=== PATIENT | male | born 1940 | race Caucasian/White ===

== ENCOUNTER 2019-06-26 09:39 | Day surgery (SDC) | payer MEDICARE, OTHER, SELFPAY ==
--- NOTE | 2019-06-26 | PATH_ITS ---
[facility] Accession Number: [id number] . 01 Material submitted: . rectum - RECTAL POLPY BIOPSY X2 . 02 Diagnosis: Rectal Polyps, Biopsies: Fragments of tubular adenoma (two polyps removed). V 06/27/2019 1253 Local . 02 Electronically signed: . Naveen Lincoln MD, PhD, Pathologist NPI- [id number] . 01 Gross description: . RECTAL POLPY BIOPSY X2: Received in formalin are multiple fragment(s) of flores, soft tissue measuring 0.1 x 0.1 x 0.1 cm to 0.3 x 0.3 x 0.3 cm submitted entirely in 1 cassette(s) [place] [place] 0201 Local . 02 Pathologist provided ICD-10: D12.8 . 02 CPT . 423737 Performed at: 01 [facility] [address] [id number] MD Davon Choudhary MD Phone: [phone] [facility]formed at: 02 [facility] [place] [address] [place], [place] [id number] MD Anabelle Greene MD Phone: [phone]
[2019-06-26 10:02] VITALS: BP 162/68; PULSE 66; RESP 18; TEMP 36.6; O2SAT 98; BMI 25.2
[2019-06-26] MEDS: SODIUM CHLORIDE 0.9% 1,000 ML 200 ML IV (10:12)
--- NOTE | 2019-06-26 10:19 | PM.HP.1 ---
History of Present Illness History of Present Illness Date Patient Seen: 06/26/19 Time Patient Seen: 10:26 Chief complaint: [id number] Narrative: Patient presents for colorectal screening. They had previous colonoscopy 3 times last one was 5 years ago in significant for adenomatous polyps which were removed.. No personal or family history of colon cancer. On further history denies any recent gastrointestinal symptoms. No nausea, vomiting, abdominal pain, loss of appetite, unexplained weight loss, change in bowel habits, diarrhea, constipation, melena, hematochezia, or bright red blood per rectum. Patient History Medical History Diabetes mellitus (Acute) HTN (hypertension) (Acute) Rheumatic fever (Acute) Family & Social History Social History: household members spouse Tobacco & Substance use: Tobacco type pipe,cigars Smoking Status Former smoker alcohol intake current alcohol intake frequency a few times a week Substance Use Type does not use Meds Home Medications and Allergies Home Medications Medication Instructions Recorded Confirmed Type peg 3350-electrolytes 236 240 ml PO Q10M #4000 ml 06/23/19 Rx gram-22.74 gram-6.74 gram-5.86 gram solution atorvastatin 10 mg PO DAILY 06/26/19 06/26/19 History insulin aspart U-100 [Novolog 6 unit SUBCUT DAILY 06/26/19 06/26/19 History U-100 Insulin aspart] insulin glargine [Lantus U-100 16 unit SUBCUT BID 06/26/19 06/26/19 History Insulin] simvastatin [Zocor] 10 mg PO DAILY 06/26/19 06/26/19 History Allergies Allergy/AdvReac Type Severity Reaction Status Date / Time No Known Drug Allergies Allergy Verified 06/26/19 09:54 Review of Systems Review of Systems Narrative: A 10 point review of systems is negative except as noted in the HPI Exam Vital Signs (past 8 hours): - 06/26/19 10:02 Temperature 97.8 F Pulse Rate 66 Respiratory Rate 18 Blood Pressure 162/68 H Pulse Oximetry 98 Oxygen Delivery Method Room Air Narrative Exam Narrative: General-no acute distress, well nourished HEENT-moist mucous membranes, no scleral icterus Neck-supple, no lymphadenopathy Chest- non labored respirations, clear to auscultation bilaterally Cardiac-regular rate no peripheral edema Abdomen-soft, nontender, non distended Extremities-warm, well perfused Neurological-alert and oriented, no focal deficits Assessment & Plan Assessment and plan (1) Screening for colon cancer: Current visit: Yes Status: Acute Assessment & Plan narrative: The patient requires colorectal screening and colonoscopy is recommended. Technical details were discussed. Risks, benefits, alternatives explained. Risks including but not limited to myocardial infarction, aspiration, bleeding, pain, missed lesion, incomplete examination, need for further radiographic studies, colonic perforation, and need for major abdominal surgery were discussed. All questions were answered to their satisfaction, and they are in agreement with this plan.
[2019-06-26] MEDS: fentaNYL 250 MCG/5 ML INJ IV (10:42)
[2019-06-26] MEDS: MIDAZOLAM 5 MG/5 ML VIAL IV (10:43)
--- NOTE | 2019-06-26 10:59 | PM.OP.ENDO ---
Operative Date/Time/Diagnoses Date of procedure: 06/26/19 Time of procedure: 10:59 Pre-op diagnosis: screening colonoscopy Post-op diagnosis: same Procedure & Clinicians Study performed: colonoscopy Same procedure as scheduled: Yes Indications: 79-year-old man last colonoscopy 5 years ago demonstrated adenomatous polyps presents for screening. Surgeon: Jeffery Caro Procedure Notes SCOAP/Timeout: Performed Procedure in detail: Patient placed in left lateral decubitus position. Time out was performed. Procedural sedation was administered with Versed and Fentanyl. A rectal exam demonstrated no external hemorrhoids no internal masses. Colonoscopy scope was placed into the rectum and advanced through the colon to the cecum. The ileocecal valve was identified. The scope was then slowly withdrawn examining colon thoroughly in all directions. The colonoscopy was notable for the following 1. Two adenomatous appearing polyps both less than 1 cm in diameter within the rectum removed with cyst cold snare. Hemostasis observed. 2. Sigmoid diverticulosis 3. Quality of prep excellent Scope withdrawal time: 14 Sedation minutes: 26 Findings: diverticulosis and polyp Specimen(s): other (Polyps-rectum) Complications: none Impression: Polyps Post-procedure Recommendations: Colonscopy in 5 years Disposition: same day surgery
[2019-06-26 11:00] VITALS: BP 137/62; PULSE 57; RESP 10; TEMP 36.1; O2SAT 95
[2019-06-26 11:05] VITALS: BP 125/59; PULSE 56; RESP 12; O2SAT 95
[2019-06-26 11:10] VITALS: BP 122/58; PULSE 63; RESP 13; O2SAT 93
[2019-06-26 11:15] VITALS: BP 120/58; PULSE 69; RESP 18; TEMP 36.1; O2SAT 94
--- NOTE | 2019-06-26 11:43 | SUR.PHASEII ---
Stable phase 2 dressed when ready, left in stable condition.
== END 2019-06-26 11:39 | disposition home or self-care (01) ==
PROVIDERS: Family Provider Internal Medicine; PCP Internal Medicine; Visit Provider Surgery
PROC: 0DJD8ZZ Inspection of Lower Intestinal Tract, Via Natural or Artificial Opening Endoscopic (ICD-10-PCS; CPT 45378; principal; 2019-06-26 10:45)
DX: Z12.11 Encounter for screening for malignant neoplasm of colon (principal); Z86.010 Personal history of colon polyps; E11.9 Type 2 diabetes mellitus without complications; I10 Essential (primary) hypertension; Z79.4 Long term (current) use of insulin; Z87.891 Personal history of nicotine dependence; D12.8 Benign neoplasm of rectum; K57.30 Diverticulosis of large intestine without perforation or abscess without bleeding
CPT/HCPCS: 45385; 99152; 99153; J2250; J3010